=== PATIENT | female | born 1945 | race Caucasian/White ===

== ENCOUNTER 2016-10-31 16:54 | Emergency (ER) | payer MEDICARE, OTHER | END 2016-10-31 18:28 | disposition home or self-care (01) | LOC: ER 16:54 | DX: I63.9 Cerebral infarction, unspecified (principal); G31.9 Degenerative disease of nervous system, unspecified; H66.93 Otitis media, unspecified, bilateral; R42 Dizziness and giddiness; Z88.0 Allergy status to penicillin; Z88.2 Allergy status to sulfonamides; Z88.1 Allergy status to other antibiotic agents; Z79.899 Other long term (current) drug therapy; Z79.82 Long term (current) use of aspirin; Z79.4 Long term (current) use of insulin; Z91.041 Radiographic dye allergy status | CPT/HCPCS: 70450; 99283; 99283-25 ==